=== PATIENT | male | born 1975 | race Caucasian/White ===

== ENCOUNTER 2021-08-14 06:42 | Inpatient (IN) | payer OTHER ==
[2021-08-14] MEDS ORDERED: Diazepam 5 MG TAB ONE (06:57)
[2021-08-14 07:52] LABS: ALT (SGPT) 72 U/L (8-55); AST (SGOT) 204 U/L (5-34); Albumin 4.2 g/dL (3.5-5.0); Alkaline Phosphatase 32 U/L (40-110); Anion Gap 21 mmol/L (10-20); BUN (Urea Nitrogen) 36 mg/dL (8.9-20.6); Bilirubin, Total 2.3 mg/dL (0.2-1.2); Calc. Creatinine Clearance 0 mL/min (70-130); Calcium 9.3 mg/dL (7.8-10.44); Carbon Dioxide 19 mmol/L (22-29); Chloride 101 mmol/L (98-107); Globulin 2.9 g/dL (2.4-3.5); Glucose 72 mg/dL (70-105); Potassium 3.3 mmol/L (3.5-5.1); Protein, Total 7.1 g/dL (6.0-8.3); Sodium 138 mmol/L (136-145)
[2021-08-14 08:01] LABS: Acetaminophen Less than 10.0 mcg/mL (10.0-30.0); Alcohol Less than 10 mg/dL (Less than 10); Salicylate Less than 8.0 mg/dL (15.0-30.0)
[2021-08-14 08:14] LABS: #Lymphocytes 0.7 thou/uL (1.20-3.40); #Monocytes 1.2 thou/uL (0.11-0.59); #Neutrophils 9.6 thou/uL (1.40-6.50); %Basophils 0.2 % (0.0-1.0); %Eosinophils 0.1 % (0.0-10.0); %Lymphocytes 5.9 % (21.0-51.0); %Monocytes 10.6 % (0.0-10.0); %Neutrophils 83.2 % (42.0-75.0); MDiff Complete? YES; Macrocytosis SLIGHT = 6-15 cells (100X) (0-5/hpf); Mean Corpuscular HGB CONC 34.8 g/dL (32.0-36.0); Mean Corpuscular Hemoglobin 36.7 pg (27.0-31.0); Mean Platelet Volume 7.7 fL (7.4-10.4); Platelet Count 144 thou/uL (130-400); Platelet Morphology Comment Appears Adequate; RBC Distribution Width 12.4 % (11.5-14.5); Red Blood Cell (RBC) Count 4.08 mill/uL (4.70-6.10); White Blood Cell (WBC) Count 11.6 thou/uL (4.8-10.8)
[2021-08-14 08:22] LABS: CKMB 36.3 ng/mL (0-6.6)
[2021-08-14] MEDS ORDERED: Multivitamins, Adult 10 ML, Thiamine HCl 100 MG, Folic Acid 1 MG in Dextrose 5 %-0.45 %... IV SCH (09:00)
[2021-08-14] MEDS ORDERED: Nitroglycerin 0.4 MG TAB (25 Tab Bottle) SL PRN (09:57)
[2021-08-14] MEDS ORDERED: Acetaminophen 325 MG TAB PO PRN (09:58)
[2021-08-14] MEDS ORDERED: Ondansetron ODT 4 MG TAB PO PRN (09:58)
[2021-08-14] MEDS ORDERED: Ondansetron PF 4 MG/2 ML Vial IVP PRN (09:58)
[2021-08-14] MEDS ORDERED: Senokot S 8.6-50 MG TAB PO PRN ×2 (09:58→12:15)
[2021-08-14] MEDS ORDERED: Electrolyte Replacement Protocol 1 EACH FS SCH (10:00)
[2021-08-14] MEDS ORDERED: Lorazepam 2 MG/ML VIAL IM PRN (10:00)
[2021-08-14] MEDS ORDERED: Lorazepam 1 MG TAB PO PRN (10:00)
[2021-08-14] MEDS ORDERED: Potassium Chloride 20 MEQ TAB PO SCH (10:13)
[2021-08-14 10:40] LABS: Magnesium 1.5 mg/dL (1.6-2.6)
[2021-08-14 10:46] LABS: Troponin I 0.055 ng/mL (< 0.028)
[2021-08-14] MEDS ORDERED: Potassium Chloride 20 MEQ TAB ONE (11:14)
[2021-08-14 11:32] LABS: SARS-CoV-2 NAA Rapid Test Not Detected (NotDetected)
[2021-08-14] MEDS ORDERED: Magnesium 2 GM/50 ML(in water) 2 GM in Premix Bag 1 BAG IVPB SCH ×2 (12:00→14:36)
[2021-08-14] MEDS: Sodium Chloride 0.9% 1,000 ML IV SCH ×2 (12:55→20:28)
[2021-08-14] MEDS: Thiamine HCl 200 MG/2 ML VIAL SLOW IVP SCH (12:58)
[2021-08-14 13:02] VITALS: BMI 27.9
[2021-08-14 14:09] LABS: Troponin I 0.054 ng/mL (< 0.028)
[2021-08-14] MEDS: chlordiazePOXIDE HCl 25 MG CAP PO SCH ×2 (15:00→20:28)
[2021-08-14 16:46] LABS: Bacteria/HPF None Seen HPF (None Seen); Bilirubin Negative (Negative); Blood, Urine Negative (Negative); Clarity Clear (Clear); Glucose, Urine (Dipstick) Normal (Negative); Ketone, Urine 20 mg/dL (Negative); Leukocyte Negative Leu/uL (Negative); Nitrite Negative (Negative); Protein, Urine (Dipstick) 10 mg/dL (Neg-Trace); RBC/HPF 0-3 HPF (0-3); Specific Gravity, Urine 1.024 (1.002-1.036); Squamous Epithelial None Seen HPF (0-3); Urobilinogen Normal mg/dL (Less than 2); WBC/HPF 0-3 HPF (0-3)
[2021-08-14 16:48] LABS: Urine Culture Reflex No No
[2021-08-14 16:54] LABS: Amphetamine Not Detected (NotDetected); Barbiturates Screen Not Detected (NotDetected); Benzodiazepine Screen Detected (NotDetected); Cocaine Metabolite Screen Not Detected (NotDetected); Methadone Not Detected (NotDetected); Methamphetamine Not Detected (NotDetected); Opiate Screen Not Detected (NotDetected); Oxycodone Screen Not Detected (NotDetected); Phencyclidine (PCP) Not Detected (NotDetected); THC/Cannabinoid Screen Not Detected (NotDetected); Tricyclic Screen Not Detected (NotDetected)
[2021-08-14] MEDS: Labetalol HCl 100 MG/20 ML VIAL SLOW IVP PRN (20:36)
[2021-08-15] MEDS: Sodium Chloride 0.9% 1,000 ML IV SCH ×4 (03:18→23:59)
[2021-08-15 05:37] LABS: ALT (SGPT) 54 U/L (8-55); AST (SGOT) 109 U/L (5-34); Albumin 3.4 g/dL (3.5-5.0); Alkaline Phosphatase 25 U/L (40-110); Anion Gap 12 mmol/L (10-20); BUN (Urea Nitrogen) 16 mg/dL (8.9-20.6); Bilirubin, Total 1.5 mg/dL (0.2-1.2); Calc. Creatinine Clearance 167 mL/min (70-130); Calcium 7.9 mg/dL (7.8-10.44); Carbon Dioxide 21 mmol/L (22-29); Chloride 105 mmol/L (98-107); Globulin 2.4 g/dL (2.4-3.5); Glucose 90 mg/dL (70-105); Magnesium 1.6 mg/dL (1.6-2.6); Protein, Total 5.8 g/dL (6.0-8.3); Sodium 135 mmol/L (136-145)
[2021-08-15 06:24] LABS: #Eosinphils 0.1 thou/uL (0.0-0.7); #Lymphocytes 1.1 thou/uL (1.20-3.40); #Neutrophils 5.2 thou/uL (1.40-6.50); %Basophils 0.4 % (0.0-1.0); %Eosinophils 1.3 % (0.0-10.0); %Lymphocytes 14.6 % (21.0-51.0); %Monocytes 13.8 % (0.0-10.0); %Neutrophils 69.9 % (42.0-75.0); Hemoglobin 12.2 g/dL (14.0-18.0); Mean Corpuscular HGB CONC 36.6 g/dL (32.0-36.0); Mean Corpuscular Hemoglobin 36.5 pg (27.0-31.0); Mean Corpuscular Volume 99.7 fL (78.0-98.0); Mean Platelet Volume 6.9 fL (7.4-10.4); Platelet Count 115 thou/uL (130-400); Platelet Morphology Comment Appears Decreased; RBC Distribution Width 12.4 % (11.5-14.5); Red Blood Cell (RBC) Count 3.35 mill/uL (4.70-6.10); White Blood Cell (WBC) Count 7.5 thou/uL (4.8-10.8)
[2021-08-15] MEDS ORDERED: Potassium Chloride 20 MEQ TAB PO SCH (08:00)
[2021-08-15] MEDS ORDERED: Magnesium 2 GM/50 ML(in water) 2 GM in Premix Bag 1 BAG IVPB SCH (08:00)
[2021-08-15] MEDS: Multivit, Therapeutic 1 TAB PO SCH (08:37)
[2021-08-15] MEDS: Folic Acid 1 MG TAB PO SCH (08:37)
[2021-08-15] MEDS: chlordiazePOXIDE HCl 25 MG CAP PO SCH ×3 (08:37→21:01)
[2021-08-15] MEDS ORDERED: Lorazepam 1 MG TAB PO PRN (10:00)
[2021-08-15] MEDS: Thiamine HCl 200 MG/2 ML VIAL SLOW IVP SCH (12:56)
[2021-08-15] MEDS: Labetalol HCl 100 MG/20 ML VIAL SLOW IVP PRN (15:28)
[2021-08-15] MEDS ORDERED: Lisinopril 10 MG TAB PO SCH (17:15)
[2021-08-16 06:18] LABS: Anion Gap 10 mmol/L (10-20); BUN (Urea Nitrogen) 7 mg/dL (8.9-20.6); Calc. Creatinine Clearance 185 mL/min (70-130); Calcium 7.9 mg/dL (7.8-10.44); Carbon Dioxide 23 mmol/L (22-29); Cardiac Risk 3.6 (Less than 4.5); Chloride 106 mmol/L (98-107); Cholesterol 177 mg/dl (< 200 Desired); Glucose 97 mg/dL (70-105); HDL Cholesterol 49 mg/dL (>60 Neg Risk); LDL Cholesterol, Calculated 112 mg/dL; Potassium 3.1 mmol/L (3.5-5.1); Sodium 136 mmol/L (136-145); Triglycerides 78 mg/dL (Less than 150)
[2021-08-16] MEDS ORDERED: Potassium Chloride 20 MEQ TAB PO SCH (08:00)
[2021-08-16] MEDS: chlordiazePOXIDE HCl 25 MG CAP PO SCH ×2 (08:16→15:18)
[2021-08-16] MEDS: Multivit, Therapeutic 1 TAB PO SCH (08:17)
[2021-08-16] MEDS: Folic Acid 1 MG TAB PO SCH (08:17)
[2021-08-16] MEDS ORDERED: Aspirin 81 mg Enteric Coated Tablet PO SCH (09:00)
[2021-08-16] MEDS ORDERED: Lisinopril 10 MG TAB PO SCH (09:00)
[2021-08-16] MEDS: Thiamine HCl 200 MG/2 ML VIAL SLOW IVP SCH (10:17)
[2021-08-16 12:19] VITALS: TEMP 97.4
[2021-08-16 13:21] VITALS: BP 142/89
[2021-08-17] MEDS ORDERED: Thiamine 100 MG TAB PO SCH (10:00)
== END 2021-08-16 16:59 | disposition home or self-care (01) | DRG 897 ==
LOC: ERS 06:42 → NEURO 09:44 → ERHOLD 09:44 → INTOOBSV 09:44 → NEURO 12:15 → OBSVTOIN 08-15 12:55
PROVIDERS: ADMIT Family Medicine; ATTEND Family Medicine
DX: F10.139 Alcohol abuse with withdrawal, unspecified (principal); E87.2 Acidosis; N17.9 Acute kidney failure, unspecified; I42.6 Alcoholic cardiomyopathy; Z20.822 Contact with and (suspected) exposure to COVID-19; I10 Essential (primary) hypertension; D72.829 Elevated white blood cell count, unspecified; E87.6 Hypokalemia; R44.1 Visual hallucinations; I25.10 Atherosclerotic heart disease of native coronary artery without angina pectoris; F10.129 Alcohol abuse with intoxication, unspecified
CPT/HCPCS: 36415; 70450; 71045; 80048; 80053; 80061; 80306; 80307; 81001; 82553; 83735; 84100; 84443; 84484; 85025; 93005; 93306; 96361; 96374; J3411; J3475; J7042; J7050; U0002